=== PATIENT | female | born 1970 | race Caucasian/White ===

== ENCOUNTER 2017-12-08 14:30 | Outpatient (RCR) | payer OTHER, MEDICAID, SELFPAY ==
--- NOTE | 2017-10-30 15:46 | PT.OIE ---
Current Diagnoses Sacrococcygeal disorders, not elsewhere classified (10/30/17) Radiculopathy, lumbosacral region (10/30/17) Low back pain (10/30/17) Past Medical History (Last Updated 10/21/17 @ 08:55 by Taylor Colindres PA-C) Essential hypertension (Chronic 10/25/11) Osteoarthritis of lumbar spine (Chronic) Asthma, moderate persistent, poorly-controlled (Chronic 12/08/10) Morbid obesity (Chronic) Situational anxiety (Chronic 07/01/15) Asthma (Chronic Unknown) Depression (Chronic Unknown) Hypertension (Chronic Unknown) Carpal tunnel syndrome (Resolved Unknown) Past Surgical History History of carpal tunnel repair History of carpal tunnel repair Status post tubal ligation Provider Visit Care Team Role Provider Type Taylor Colindres PA-C Family Provider Advanced Practioner Clinician Primary Care Provider Specialty: Medical Address: [address] [place] [address], [id number] Email: [email or web address] Eitan Zimmerman MD Attending Provider Physician Specialty: Physical Medicine and Rehab Address: [address] [place] [address], [id number] Email: Physical Therapy Initial Evaluation PT-OP-A Visit Information Start: 10/23/17 07:25 Freq: Status: Active Protocol: Document 10/30/17 15:21 [facility] (Rec: 10/30/17 15:45 [facility] [id number]) Out-Patient Physical Therapy Visit Information Visit Information Visit Type Initial Evaluation Visit Start Time 14:32 Visit Stop Time 15:06 Total Visit Minutes 34 Visit Number 1 Number of FITTING ROOM INSPECTOR Visits 0 PT-OP-B Current Condition Start: 10/23/17 07:25 Freq: Status: Active Protocol: Document 10/30/17 15:21 [facility] (Rec: 10/30/17 15:45 [facility] [id number]) Current Condition History of Current Condition History of Current Condition Pt has hx of chronic LBP with history of trials of PT in past. First PT trial did help a little temporarily. Pt reports other PT did not make any difference. Pt reports she is having inc pain and in order to get MRI or further MD rx, she is being required to try PT. Pt reports she has a lot going on at home right now , creating increased stress. Future Testing and Treatments Planned MRI and further MD العلي if PT not successful Treatment Goals Patient/Caregiver Goals play at park with grandkids, lift grandkids, go for walks with grandkids w/o concern re: repercussions for back pain Personal Factors Other Personal Factors That May Effect Stress at home d/t issues w/ Therapy/Recovery son PT-OP-C Subjective Start: 10/23/17 07:25 Freq: Status: Active Protocol: Document 10/30/17 15:21 [facility] (Rec: 10/30/17 15:45 [facility] [email or web address]) Patient Questionnaires Oswestry Low Back Index Oswestry Score 24/50 Oswestry Impairment 40 to 59% Impaired (Score 40- 59) OP-PT Pain Assessment Location Right Leg Pain Location Details R LB into glute & down post thigh & into lat/post calf & foot Frequency Frequent Other Pain Aggravating Factors extended sit, extended stand, extended walk, difficulty falling asleep Other Pain Alleviating Factors massage, heat, laying down sometimes, stretch in hot shower PT-OP-G Mobility & Gait Start: 10/23/17 07:25 Freq: Status: Active Protocol: Document 10/30/17 15:21 [facility] (Rec: 10/30/17 15:45 [facility] [email or web address]) OP Gait Assessment Gait Deviations General Gait Pattern Antalgic Decreased Stride Length Flexed Trunk Lateral Trunk Lean PT-OP-J Posture/Palpation/Skin Start: 10/23/17 07:25 Freq: Status: Active Protocol: Document 10/30/17 15:21 [facility] (Rec: 10/30/17 15:45 [facility] [email or web address]) Posture Evaluation Angel Postural Classification System Angel Postural Classifications Anterior/Posterior Palpation Assessment Location One Palpation Location Tenderness in LB & glutes PT-OP-K Range of Motion Start: 10/23/17 07:25 Freq: Status: Active Protocol: Document 10/30/17 15:21 [facility] (Rec: 10/30/17 15:45 [facility] [email or web address]) Lumbar Spine Range of Motion Lumbar Spine Active Degrees Testing Position standing Flexion 65 Extension 30 Lateral Flexion Left 25 Lateral Flexion Right 18 ROM Limitations Pain Comments pain R side with R SB, pain with flex & ext PT-OP-L Special Tests Start: 10/23/17 07:25 Freq: Status: Active Protocol: Document 10/30/17 15:21 [facility] (Rec: 10/30/17 15:45 [facility] [email or web address]) Special Tests Lumbar Spine Special Tests Slump Test Results positive R; negative L PT-OP-M Strength Start: 10/23/17 07:25 Freq: Status: Active Protocol: Document 10/30/17 15:21 [facility] (Rec: 10/30/17 15:45 [facility] [email or web address]) Hip Strength Hip Manual Muscle Testing Right Flexion (L2) 5 Normal Abduction 3+ Fair+ External Rotation 3+ Fair+ Internal Rotation 4+ Good+ Left Flexion (L2) 5 Normal Abduction 4 Good External Rotation 4+ Good+ Internal Rotation 4+ Good+ Knee Strength Knee Manual Muscle Testing Right Flexion (S2) 4+ Good+ Extension (L3) 4+ Good+ Comments B ankle strength 5/5 Left Flexion (S2) 5 Normal Extension (L3) 5 Normal PT-OP-Q Treatments Start: 10/23/17 07:25 Freq: Status: Active Protocol: Document 10/30/17 15:21 [facility] (Rec: 10/30/17 15:45 [facility] [email or web address]) Therapeutic Activity Therapeutic Activity 2 Name sleep positions (supine & S/L & partial prone) 1 Name tennis ball on glutes & paraspinals PT-OP-T Assessment and Plan Start: 10/23/17 07:25 Freq: Status: Active Protocol: Document 10/30/17 15:21 [facility] (Rec: 10/30/17 15:45 [facility] [email or web address]) Physical Therapy Assessment Rehab Potential Rehabilitation Potential Fair Evaluation Complexity Number of Personal Factors/Comorbidities 3 or More Number of Body Systems Impaired 4 or More Clinical Presentation at Evaluation Evolving Impairments Impairments Activity Tolerance Functional Activities Gait Pain Posture ROM Soft Tissue Mobility Strength Goals Three Impairment gait Book Repairer Goal (LTG) Pt will amb with min deviations to prevent further aggrevation of LB & RLE. LTG Duration 12/30/17 Two Impairment strength Short Term Goal (STG) Indep w/HEP STG Duration 11/29/17 Mcc Goal (LTG) 5/5 strength to allow pt to play with grandkids with less restriction LTG Duration 12/30/17 One Impairment posture Short Term Goal (STG) Pt will demonstrate good lifting mechanics STG Duration 11/29/17 Book Repairer Goal (LTG) Pt will present with good posture without cueing. LTG Duration 12/30/17 Assessment Summary Assessment Pt presents with chronic LBP with radiculopathy into RLE. Pt would benefit from skilled PT to educate on proper positioning and posture for pain and strengthening to stabilize lumbosacral region. Physical Therapy Plan Frequency and Duration Frequency of Treatment 2x/Week Duration of Treatment 2 months Plan of Care Start Date 10/30/17 Plan of Care End Date 12/30/17 Therapeutic Interventions Therapeutic Interventions Aquatic Therapy Balance Training Gait Training Home Exercise Program Joint Mobilizations Manual Therapy Soft Tissue Mobilization Taping Therapeutic Exercises Modalities Electric Stimulation Hot Packs Ultrasound Next Visit Focus/Plan Next Note Type Treatment Note Next Visit Plan ICF stim w/MHP, LTR, piriformis stretch, pelvic tilt, cat/camel, felipa pose, STM to lumbar & glutes
--- NOTE | 2017-10-30 15:46 | PT.OPPOC ---
Current Diagnoses Sacrococcygeal disorders, not elsewhere classified (10/30/17) Radiculopathy, lumbosacral region (10/30/17) Low back pain (10/30/17) Provider Visit Care Team Role Provider Type Taylor Colindres PA-C Family Provider Advanced Practioner Clinician Primary Care Provider Specialty: Medical Address: [address] [place] [address], [phone] Email: [email or web address] Eitan Zimmerman MD Attending Provider Physician Specialty: Physical Medicine and Rehab Address: [address] [place] [address], [phone] Email: Plan Of Care PT-OP-T Assessment and Plan Start: 10/23/17 07:25 Freq: Status: Active Protocol: Document 10/30/17 15:21 [facility] (Rec: 10/30/17 15:45 [facility] [email or web address]) Physical Therapy Assessment Rehab Potential Rehabilitation Potential Fair Evaluation Complexity Number of Personal Factors/Comorbidities 3 or More Number of Body Systems Impaired 4 or More Clinical Presentation at Evaluation Evolving Impairments Impairments Activity Tolerance Functional Activities Gait Pain Posture ROM Soft Tissue Mobility Strength Goals Three Impairment gait Offset Plate Preparation Supervisor Goal (LTG) Pt will amb with min deviations to prevent further aggrevation of LB & RLE. LTG Duration 12/30/17 Two Impairment strength Short Term Goal (STG) Indep w/HEP STG Duration 11/29/17 Offset Plate Preparation Supervisor Goal (LTG) 5/5 strength to allow pt to play with grandkids with less restriction LTG Duration 12/30/17 One Impairment posture Short Term Goal (STG) Pt will demonstrate good lifting mechanics STG Duration 11/29/17 Mcc Goal (LTG) Pt will present with good posture without cueing. LTG Duration 12/30/17 Assessment Summary Assessment Pt presents with chronic LBP with radiculopathy into RLE. Pt would benefit from skilled PT to educate on proper positioning and posture for pain and strengthening to stabilize lumbosacral region. Physical Therapy Plan Frequency and Duration Frequency of Treatment 2x/Week Duration of Treatment 2 months Plan of Care Start Date 10/30/17 Plan of Care End Date 12/30/17 Therapeutic Interventions Therapeutic Interventions Aquatic Therapy Balance Training Gait Training Home Exercise Program Joint Mobilizations Manual Therapy Soft Tissue Mobilization Taping Therapeutic Exercises Modalities Electric Stimulation Hot Packs Ultrasound Next Visit Focus/Plan Next Note Type Treatment Note Next Visit Plan ICF stim w/MHP, LTR, piriformis stretch, pelvic tilt, cat/camel, felipa pose, STM to lumbar & glutes Plan of Care Dates Plan of Care Start Date 10/30/17 Plan of Care End Date 12/30/17
--- NOTE | 2017-11-21 16:46 | PT.OTN ---
Current Diagnoses Sacrococcygeal disorders, not elsewhere classified (11/21/17) Radiculopathy, lumbosacral region (11/21/17) Low back pain (11/21/17) Physical Therapy Treatment Note PT-OP-A Visit Information Start: 10/23/17 07:25 Freq: Status: Active Protocol: Document 11/21/17 16:39 [facility] (Rec: 11/21/17 16:46 [facility] [email or web address]) Out-Patient Physical Therapy Visit Information Visit Information Visit Type Treatment Note Visit Note 24 total vists allowed Visit Start Time 15:15 Visit Stop Time 16:15 Total Visit Minutes 60 Visit Number 2 Number of CONTROL ROOM SUPERVISOR Visits 0 PT-OP-B Current Condition Start: 10/23/17 07:25 Freq: Status: Active Protocol: Document 10/30/17 15:21 [facility] (Rec: 10/30/17 15:45 [facility] [email or web address]) Current Condition History of Current Condition History of Current Condition Pt has hx of chronic LBP with history of trials of PT in past. First PT trial did help a little temporarily. Pt reports other PT did not make any difference. Pt reports she is having inc pain and in order to get MRI or further MD rx, she is being required to try PT. Pt reports she has a lot going on at home right now , creating increased stress. Future Testing and Treatments Planned MRI and further MD eval if PT not successful Treatment Goals Patient/Caregiver Goals play at park with grandkids, lift grandkids, go for walks with grandkids w/o concern re: repercussions for back pain Personal Factors Other Personal Factors That May Effect Stress at home d/t issues w/ Therapy/Recovery son PT-OP-C Subjective Start: 10/23/17 07:25 Freq: Status: Active Protocol: Document 11/21/17 16:39 [facility] (Rec: 11/21/17 16:46 [facility] [email or web address]) OP-PT Subjective Patient Comments Patient Comments Pt reports she was sick which is why she missed prior appts. Reports she has tried sleeping positions and they have helped some. PT-OP-G Mobility & Gait Start: 10/23/17 07:25 Freq: Status: Active Protocol: Document 10/30/17 15:21 [facility] (Rec: 10/30/17 15:45 [facility] [email or web address]) OP Gait Assessment Gait Deviations General Gait Pattern Antalgic Decreased Stride Length Flexed Trunk Lateral Trunk Lean PT-OP-J Posture/Palpation/Skin Start: 10/23/17 07:25 Freq: Status: Active Protocol: Document 10/30/17 15:21 [facility] (Rec: 10/30/17 15:45 [facility] [email or web address]) Posture Evaluation [facility] Postural Classification System Angel Postural Classifications Anterior/Posterior Palpation Assessment Location One Palpation Location Tenderness in LB & glutes PT-OP-K Range of Motion Start: 10/23/17 07:25 Freq: Status: Active Protocol: Document 10/30/17 15:21 [facility] (Rec: 10/30/17 15:45 [facility] [email or web address]) Lumbar Spine Range of Motion Lumbar Spine Active Degrees Testing Position standing Flexion 65 Extension 30 Lateral Flexion Left 25 Lateral Flexion Right 18 ROM Limitations Pain Comments pain R side with R SB, pain with flex & ext PT-OP-L Special Tests Start: 10/23/17 07:25 Freq: Status: Active Protocol: Document 10/30/17 15:21 [facility] (Rec: 10/30/17 15:45 [facility] [id number]) Special Tests Lumbar Spine Special Tests Slump Test Results positive R; negative L PT-OP-M Strength Start: 10/23/17 07:25 Freq: Status: Active Protocol: Document 10/30/17 15:21 [facility] (Rec: 10/30/17 15:45 [facility] [email or web address]) Hip Strength Hip Manual Muscle Testing Right Flexion (L2) 5 Normal Abduction 3+ Fair+ External Rotation 3+ Fair+ Internal Rotation 4+ Good+ Left Flexion (L2) 5 Normal Abduction 4 Good External Rotation 4+ Good+ Internal Rotation 4+ Good+ Knee Strength Knee Manual Muscle Testing Right Flexion (S2) 4+ Good+ Extension (L3) 4+ Good+ Comments B ankle strength 5/5 Left Flexion (S2) 5 Normal Extension (L3) 5 Normal PT-OP-Q Treatments Start: 10/23/17 07:25 Freq: Status: Active Protocol: Document 11/21/17 16:39 [facility] (Rec: 11/21/17 16:46 [facility] [email or web address]) Therapeutic Exercises Supine Exercises 5 Supine Exercise Name pelvic tilt with heel slide Reps/Minutes 5 Comments small range 3 Supine Exercise Name Feldenkris hip rotation 3 positions 2 Supine Exercise Name LTR Reps/Minutes 10 1 Supine Exercise Name pelvic tilt Reps/Minutes 10 Manual Therapy Treatment Soft Tissue Mobilization 1 Body Location QL Mobilization Type Rolling Body Position Sidelying Self-Care/Home Management Treatment Education Other Education edu on importance of exercise & movement & importance to stay in pain free range. PT-OP-R Modalities Start: 10/23/17 07:25 Freq: Status: Active Protocol: Document 11/21/17 16:39 [facility] (Rec: 11/21/17 16:46 [facility] [email or web address]) Electric Stimulation Electric Stimulation Interferential Current (IFC) Body Location lumbar Duration (Minutes) 15 Patient Position Hooklying Combined With Heat/Cold Hot Pack PT-OP-T Assessment and Plan Start: 10/23/17 07:25 Freq: Status: Active Protocol: Document 11/21/17 16:39 [facility] (Rec: 11/21/17 16:46 [facility] [email or web address]) Physical Therapy Assessment Goals Three Impairment gait Assisted Goal (LTG) Pt will amb with min deviations to prevent further aggrevation of LB & RLE. LTG Duration 12/30/17 Two Impairment strength Short Term Goal (STG) Indep w/HEP STG Duration 11/29/17 Assisted Goal (LTG) 5/5 strength to allow pt to play with grandkids with less restriction LTG Duration 12/30/17 One Impairment posture Short Term Goal (STG) Pt will demonstrate good lifting mechanics STG Duration 11/29/17 Assisted Goal (LTG) Pt will present with good posture without cueing. LTG Duration 12/30/17 Assessment Summary Assessment Pt able to tolerate all new exercises with report of very minor inc pain. Encouraged to stay in painfree range with all exercises.Pt reports improvement with Stim/MHP Physical Therapy Plan Frequency and Duration Frequency of Treatment 2x/Week Duration of Treatment 2 months Plan of Care Start Date 10/30/17 Plan of Care End Date 12/30/17 Next Visit Focus/Plan Next Note Type Treatment Note Next Visit Plan mechanical traction, cat/camel , felipa pose, piriformis stretch, advance core stability as tolerated
--- NOTE | 2017-11-24 16:43 | PT.OTN ---
Current Diagnoses Sacrococcygeal disorders, not elsewhere classified (11/24/17) Radiculopathy, lumbosacral region (11/24/17) Low back pain (11/24/17) Physical Therapy Treatment Note PT-OP-A Visit Information Start: 10/23/17 07:25 Freq: Status: Active Protocol: Document 11/24/17 15:13 [facility] (Rec: 11/24/17 16:43 [facility] [id number]) Out-Patient Physical Therapy Visit Information Visit Information Visit Type Treatment Note Visit Start Time 14:30 Visit Stop Time 15:30 Total Visit Minutes 60 Visit Number 3 Number of [employer] FLATBED DRIVER Visits 0 PT-OP-B Current Condition Start: 10/23/17 07:25 Freq: Status: Active Protocol: Document 10/30/17 15:21 [facility] (Rec: 10/30/17 15:45 [facility] [email or web address]) Current Condition History of Current Condition History of Current Condition Pt has hx of chronic LBP with history of trials of PT in past. First PT trial did help a little temporarily. Pt reports other PT did not make any difference. Pt reports she is having inc pain and in order to get MRI or further MD rx, she is being required to try PT. Pt reports she has a lot going on at home right now , creating increased stress. Future Testing and Treatments Planned MRI and further MD eval if PT not successful Treatment Goals Patient/Caregiver Goals play at park with grandkids, lift grandkids, go for walks with grandkids w/o concern re: repercussions for back pain Personal Factors Other Personal Factors That May Effect Stress at home d/t issues w/ Therapy/Recovery son PT-OP-C Subjective Start: 10/23/17 07:25 Freq: Status: Active Protocol: Document 11/24/17 15:13 [facility] (Rec: 11/24/17 16:43 [facility] [id number]) OP-PT Subjective Patient Comments Patient Comments Pt reports feeling good after last session. PT-OP-G Mobility & Gait Start: 10/23/17 07:25 Freq: Status: Active Protocol: Document 10/30/17 15:21 [facility] (Rec: 10/30/17 15:45 [facility] [email or web address]) OP Gait Assessment Gait Deviations General Gait Pattern Antalgic Decreased Stride Length Flexed Trunk Lateral Trunk Lean PT-OP-J Posture/Palpation/Skin Start: 10/23/17 07:25 Freq: Status: Active Protocol: Document 10/30/17 15:21 [facility] (Rec: 10/30/17 15:45 [facility] [email or web address]) Posture Evaluation [facility] Postural Classification System Angel Postural Classifications Anterior/Posterior Palpation Assessment Location One Palpation Location Tenderness in LB & glutes PT-OP-K Range of Motion Start: 10/23/17 07:25 Freq: Status: Active Protocol: Document 10/30/17 15:21 [facility] (Rec: 10/30/17 15:45 [facility] [email or web address]) Lumbar Spine Range of Motion Lumbar Spine Active Degrees Testing Position standing Flexion 65 Extension 30 Lateral Flexion Left 25 Lateral Flexion Right 18 ROM Limitations Pain Comments pain R side with R SB, pain with flex & ext PT-OP-L Special Tests Start: 10/23/17 07:25 Freq: Status: Active Protocol: Document 10/30/17 15:21 [facility] (Rec: 10/30/17 15:45 [facility] [email or web address]) Special Tests Lumbar Spine Special Tests Slump Test Results positive R; negative L PT-OP-M Strength Start: 10/23/17 07:25 Freq: Status: Active Protocol: Document 10/30/17 15:21 [facility] (Rec: 10/30/17 15:45 [facility] [id number]) Hip Strength Hip Manual Muscle Testing Right Flexion (L2) 5 Normal Abduction 3+ Fair+ External Rotation 3+ Fair+ Internal Rotation 4+ Good+ Left Flexion (L2) 5 Normal Abduction 4 Good External Rotation 4+ Good+ Internal Rotation 4+ Good+ Knee Strength Knee Manual Muscle Testing Right Flexion (S2) 4+ Good+ Extension (L3) 4+ Good+ Comments B ankle strength 5/5 Left Flexion (S2) 5 Normal Extension (L3) 5 Normal PT-OP-Q Treatments Start: 10/23/17 07:25 Freq: Status: Active Protocol: Document 11/24/17 15:13 [facility] (Rec: 11/24/17 16:43 [facility] [id number]) Therapeutic Exercises Supine Exercises 4 Supine Exercise Name bridge Reps/Minutes 10 Comments starting with manual facilitation 2 Supine Exercise Name LTR Reps/Minutes 5 Sidelying Exercises 1 Sidelying Exercise Name abd Side bilateral Reps/Minutes 2x10 Manual Therapy Treatment Soft Tissue Mobilization 1 Body Location QL & ES Mobilization Type Rolling Body Position Sidelying PT-OP-R Modalities Start: 10/23/17 07:25 Freq: Status: Active Protocol: Document 11/24/17 15:13 [facility] (Rec: 11/24/17 16:43 [facility] [id number]) Electric Stimulation Electric Stimulation Interferential Current (IFC) Body Location lumbar Duration (Minutes) 15 Patient Position Hooklying Combined With Heat/Cold Hot Pack Spinal Traction Traction Treatment Lumbar Method Mechanical Patient Position Hooklying Force Applied (Pounds) 42 Duration of Treatment (Minutes) 10 Heating Pad Applied No PT-OP-T Assessment and Plan Start: 10/23/17 07:25 Freq: Status: Active Protocol: Document 11/24/17 15:13 [facility] (Rec: 11/24/17 16:43 [facility] [id number]) Physical Therapy Assessment Goals Three Impairment gait Nail Welter Goal (LTG) Pt will amb with min deviations to prevent further aggrevation of LB & RLE. LTG Duration 12/30/17 Two Impairment strength Short Term Goal (STG) Indep w/HEP STG Duration 11/29/17 Group Home Goal (LTG) 5/5 strength to allow pt to play with grandkids with less restriction LTG Duration 12/30/17 One Impairment posture Short Term Goal (STG) Pt will demonstrate good lifting mechanics STG Duration 11/29/17 Group Home Goal (LTG) Pt will present with good posture without cueing. LTG Duration 12/30/17 Assessment Summary Assessment Pt did well with all new exercises and was able to tolerate inc pressure with STM today. Physical Therapy Plan Next Visit Focus/Plan Next Note Type Treatment Note Next Visit Plan cat/camel, felipa pose, piriformis stretch, cont advancing core stability & assess how pt tolerated manual traction
--- NOTE | 2017-12-04 09:51 | PT.OTN ---
Current Diagnoses Sacrococcygeal disorders, not elsewhere classified (12/04/17) Radiculopathy, lumbosacral region (12/04/17) Low back pain (12/04/17) Physical Therapy Treatment Note PT-OP-A Visit Information Start: 10/23/17 07:25 Freq: Status: Active Protocol: Document 12/04/17 09:05 [facility] (Rec: 12/04/17 09:43 [facility] [id number]) Out-Patient Physical Therapy Visit Information Visit Information Visit Type Treatment Note Visit Note 10 min late Visit Start Time 09:10 Visit Stop Time 10:00 Total Visit Minutes 50 Visit Number 4 Number of CLASSIFIER OPERATOR Visits 0 PT-OP-B Current Condition Start: 10/23/17 07:25 Freq: Status: Active Protocol: Document 10/30/17 15:21 [facility] (Rec: 10/30/17 15:45 [facility] [id number]) Current Condition History of Current Condition History of Current Condition Pt has hx of chronic LBP with history of trials of PT in past. First PT trial did help a little temporarily. Pt reports other PT did not make any difference. Pt reports she is having inc pain and in order to get MRI or further MD rx, she is being required to try PT. Pt reports she has a lot going on at home right now , creating increased stress. Future Testing and Treatments Planned MRI and further MD eval if PT not successful Treatment Goals Patient/Caregiver Goals play at park with grandkids, lift grandkids, go for walks with grandkids w/o concern re: repercussions for back pain Personal Factors Other Personal Factors That May Effect Stress at home d/t issues w/ Therapy/Recovery son PT-OP-C Subjective Start: 10/23/17 07:25 Freq: Status: Active Protocol: Document 12/04/17 09:05 [facility] (Rec: 12/04/17 09:43 [facility] [id number]) OP-PT Subjective Patient Comments Patient Comments Compliance with HEP. [place] good with traction PT-OP-G Mobility & Gait Start: 10/23/17 07:25 Freq: Status: Active Protocol: Document 10/30/17 15:21 [facility] (Rec: 10/30/17 15:45 [facility] [id number]) OP Gait Assessment Gait Deviations General Gait Pattern Antalgic Decreased Stride Length Flexed Trunk Lateral Trunk Lean PT-OP-J Posture/Palpation/Skin Start: 10/23/17 07:25 Freq: Status: Active Protocol: Document 10/30/17 15:21 [facility] (Rec: 10/30/17 15:45 [facility] [id number]) Posture Evaluation [facility] Postural Classification System Angel Postural Classifications Anterior/Posterior Palpation Assessment Location One Palpation Location Tenderness in LB & glutes PT-OP-K Range of Motion Start: 10/23/17 07:25 Freq: Status: Active Protocol: Document 10/30/17 15:21 [facility] (Rec: 10/30/17 15:45 [facility] [id number]) Lumbar Spine Range of Motion Lumbar Spine Active Degrees Testing Position standing Flexion 65 Extension 30 Lateral Flexion Left 25 Lateral Flexion Right 18 ROM Limitations Pain Comments pain R side with R SB, pain with flex & ext PT-OP-L Special Tests Start: 10/23/17 07:25 Freq: Status: Active Protocol: Document 10/30/17 15:21 [facility] (Rec: 10/30/17 15:45 [facility] [id number]) Special Tests Lumbar Spine Special Tests Slump Test Results positive R; negative L PT-OP-M Strength Start: 10/23/17 07:25 Freq: Status: Active Protocol: Document 10/30/17 15:21 [facility] (Rec: 10/30/17 15:45 [facility] [id number]) Hip Strength Hip Manual Muscle Testing Right Flexion (L2) 5 Normal Abduction 3+ Fair+ External Rotation 3+ Fair+ Internal Rotation 4+ Good+ Left Flexion (L2) 5 Normal Abduction 4 Good External Rotation 4+ Good+ Internal Rotation 4+ Good+ Knee Strength Knee Manual Muscle Testing Right Flexion (S2) 4+ Good+ Extension (L3) 4+ Good+ Comments B ankle strength 5/5 Left Flexion (S2) 5 Normal Extension (L3) 5 Normal PT-OP-Q Treatments Start: 10/23/17 07:25 Freq: Status: Active Protocol: Document 12/04/17 09:05 [facility] (Rec: 12/04/17 09:43 [facility] [id number]) Therapeutic Exercises Supine Exercises 4 Supine Exercise Name bridge Reps/Minutes 5 5 Supine Exercise Name pelvic tilt with heel slide Reps/Minutes 5 3 Supine Exercise Name Feldenkris hip rotation 3 positions Reps/Minutes 5 2 Supine Exercise Name LTR Reps/Minutes 5 1 Supine Exercise Name pelvic tilt Reps/Minutes 5 Sidelying Exercises 1 Sidelying Exercise Name abd Side bilateral Reps/Minutes 10 Manual Therapy Treatment Soft Tissue Mobilization 1 Body Location QL & ES Mobilization Type Rolling Body Position Prone Joint Mobilizations 1 Joint sacrum Direction R UPA & caudal FM PT-OP-R Modalities Start: 10/23/17 07:25 Freq: Status: Active Protocol: Document 12/04/17 09:05 [facility] (Rec: 12/04/17 09:43 [facility] [id number]) Electric Stimulation Electric Stimulation Interferential Current (IFC) Body Location lumbar Duration (Minutes) 15 Patient Position Hooklying Combined With Heat/Cold Hot Pack Spinal Traction Traction Treatment Lumbar Method Mechanical Patient Position Hooklying Force Applied (Pounds) 47 Duration of Treatment (Minutes) 10 Heating Pad Applied No PT-OP-T Assessment and Plan Start: 10/23/17 07:25 Freq: Status: Active Protocol: Document 12/04/17 09:05 [facility] (Rec: 12/04/17 09:43 [facility] [id number]) Physical Therapy Assessment Goals Three Impairment gait Retirement Goal (LTG) Pt will amb with min deviations to prevent further aggrevation of LB & RLE. LTG Duration 12/30/17 Two Impairment strength Short Term Goal (STG) Indep w/HEP STG Duration 11/29/17 Aircraft Designer Goal (LTG) 5/5 strength to allow pt to play with grandkids with less restriction LTG Duration 12/30/17 One Impairment posture Short Term Goal (STG) Pt will demonstrate good lifting mechanics STG Duration 11/29/17 Retirement Goal (LTG) Pt will present with good posture without cueing. LTG Duration 12/30/17 Assessment Summary Assessment Pt had improved ability to maintain core stability during exercises. She required min cueing to maintain neutral. Physical Therapy Plan Frequency and Duration Frequency of Treatment 2x/Week Duration of Treatment 2 months Plan of Care Start Date 10/30/17 Plan of Care End Date 12/30/17 Next Visit Focus/Plan Next Note Type Treatment Note Next Visit Plan cat/camel, felipa pose, piriformis stretch, cont advancing core stability & assess how pt tolerated manual traction
--- NOTE | 2017-12-08 15:29 | PT.OTN ---
Current Diagnoses Sacrococcygeal disorders, not elsewhere classified (12/08/17) Radiculopathy, lumbosacral region (12/08/17) Low back pain (12/08/17) Physical Therapy Treatment Note PT-OP-A Visit Information Start: 10/23/17 07:25 Freq: Status: Active Protocol: Document 12/08/17 14:36 [facility] (Rec: 12/08/17 15:29 [facility] [id number]) Out-Patient Physical Therapy Visit Information Visit Information Visit Type Treatment Note Visit Start Time 14:35 Visit Stop Time 15:30 Total Visit Minutes 55 Visit Number 5 Number of ENGINE PILOT Visits 0 PT-OP-B Current Condition Start: 10/23/17 07:25 Freq: Status: Active Protocol: Document 10/30/17 15:21 [facility] (Rec: 10/30/17 15:45 [facility] [id number]) Current Condition History of Current Condition History of Current Condition Pt has hx of chronic LBP with history of trials of PT in past. First PT trial did help a little temporarily. Pt reports other PT did not make any difference. Pt reports she is having inc pain and in order to get MRI or further MD rx, she is being required to try PT. Pt reports she has a lot going on at home right now , creating increased stress. Future Testing and Treatments Planned MRI and further MD eval if PT not successful Treatment Goals Patient/Caregiver Goals play at park with grandkids, lift grandkids, go for walks with grandkids w/o concern re: repercussions for back pain Personal Factors Other Personal Factors That May Effect Stress at home d/t issues w/ Therapy/Recovery son PT-OP-C Subjective Start: 10/23/17 07:25 Freq: Status: Active Protocol: Document 12/08/17 14:36 [facility] (Rec: 12/08/17 15:29 [facility] [id number]) OP-PT Subjective Patient Comments Patient Comments Compliance w/HEP PT-OP-G Mobility & Gait Start: 10/23/17 07:25 Freq: Status: Active Protocol: Document 10/30/17 15:21 [facility] (Rec: 10/30/17 15:45 [facility] [id number]) OP Gait Assessment Gait Deviations General Gait Pattern Antalgic Decreased Stride Length Flexed Trunk Lateral Trunk Lean PT-OP-J Posture/Palpation/Skin Start: 10/23/17 07:25 Freq: Status: Active Protocol: Document 10/30/17 15:21 [facility] (Rec: 10/30/17 15:45 [facility] [id number]) Posture Evaluation [facility] Postural Classification System Angel Postural Classifications Anterior/Posterior Palpation Assessment Location One Palpation Location Tenderness in LB & glutes PT-OP-K Range of Motion Start: 10/23/17 07:25 Freq: Status: Active Protocol: Document 10/30/17 15:21 [facility] (Rec: 10/30/17 15:45 [facility] [id number]) Lumbar Spine Range of Motion Lumbar Spine Active Degrees Testing Position standing Flexion 65 Extension 30 Lateral Flexion Left 25 Lateral Flexion Right 18 ROM Limitations Pain Comments pain R side with R SB, pain with flex & ext PT-OP-L Special Tests Start: 10/23/17 07:25 Freq: Status: Active Protocol: Document 10/30/17 15:21 [facility] (Rec: 10/30/17 15:45 [facility] [id number]) Special Tests Lumbar Spine Special Tests Slump Test Results positive R; negative L PT-OP-M Strength Start: 10/23/17 07:25 Freq: Status: Active Protocol: Document 10/30/17 15:21 [facility] (Rec: 10/30/17 15:45 [facility] [id number]) Hip Strength Hip Manual Muscle Testing Right Flexion (L2) 5 Normal Abduction 3+ Fair+ External Rotation 3+ Fair+ Internal Rotation 4+ Good+ Left Flexion (L2) 5 Normal Abduction 4 Good External Rotation 4+ Good+ Internal Rotation 4+ Good+ Knee Strength Knee Manual Muscle Testing Right Flexion (S2) 4+ Good+ Extension (L3) 4+ Good+ Comments B ankle strength 5/5 Left Flexion (S2) 5 Normal Extension (L3) 5 Normal PT-OP-Q Treatments Start: 10/23/17 07:25 Freq: Status: Active Protocol: Document 12/08/17 14:36 [facility] (Rec: 12/08/17 15:29 [facility] [id number]) Therapeutic Exercises Supine Exercises 6 Supine Exercise Name piriformis stretch Reps/Minutes 2x30 4 Supine Exercise Name bridge Reps/Minutes 10 Comments arms overhead 5 Supine Exercise Name pelvic tilt w/SLR Reps/Minutes 10 1 Supine Exercise Name tilt with scissors Reps/Minutes 2x5 Manual Therapy Treatment Soft Tissue Mobilization 1 Body Location QL & ES Mobilization Type Rolling Body Position Prone Joint Mobilizations 2 Joint hip Direction on axis ER R 1 Joint sacrum Direction R UPA & caudal FM PT-OP-R Modalities Start: 10/23/17 07:25 Freq: Status: Active Protocol: Document 12/08/17 14:36 [facility] (Rec: 12/08/17 15:29 [facility] [id number]) Electric Stimulation Electric Stimulation Interferential Current (IFC) Body Location lumbar Duration (Minutes) 15 Patient Position Hooklying Combined With Heat/Cold Hot Pack Spinal Traction Traction Treatment Lumbar Method Mechanical Patient Position Hooklying Force Applied (Pounds) 60 Duration of Treatment (Minutes) 10 Heating Pad Applied No PT-OP-T Assessment and Plan Start: 10/23/17 07:25 Freq: Status: Active Protocol: Document 12/08/17 14:36 [facility] (Rec: 12/08/17 15:29 [facility] [id number]) Physical Therapy Assessment Goals Three Impairment gait Shelter Goal (LTG) Pt will amb with min deviations to prevent further aggrevation of LB & RLE. LTG Duration 12/30/17 Two Impairment strength Short Term Goal (STG) Indep w/HEP STG Duration 11/29/17 Shelter Goal (LTG) 5/5 strength to allow pt to play with grandkids with less restriction LTG Duration 12/30/17 One Impairment posture Short Term Goal (STG) Pt will demonstrate good lifting mechanics STG Duration 11/29/17 Shelter Goal (LTG) Pt will present with good posture without cueing. LTG Duration 12/30/17 Assessment Summary Assessment Pt is able to tolerate advancement in HEP exercises. She is progressing with overall stability Physical Therapy Plan Frequency and Duration Frequency of Treatment 2x/Week Duration of Treatment 2 months Plan of Care Start Date 10/30/17 Plan of Care End Date 12/30/17 Next Visit Focus/Plan Next Note Type Treatment Note Next Visit Plan cat/camel, felipa pose & advance core
--- NOTE | 2018-02-13 16:52 | PT.OPPN ---
Current Diagnoses Sacrococcygeal disorders, not elsewhere classified (12/08/17) Radiculopathy, lumbosacral region (12/08/17) Low back pain (12/08/17) Physical Therapy Progress Note To Sarah Wilkins has attended 5 visits between 10/30/17 and 12/08/17 with manual skills used, modalities, and exercises that were instructed for HEP. Pt has improved with flexibility and mobility, but reports no change in pain. In recent phone conversation with patient, she reports she has done her HEP consistently since last mobility, but still has a high level of daily pain. Pt requested progress note be sent to MD. She has not been seen recently, so no strength or ROM has been tested since evaluation. Thank you, Twyla Villa PT, DPT, CSCS, CIMI
--- NOTE | 2018-05-01 16:52 | PT.OPDS ---
Current Diagnoses Sacrococcygeal disorders, not elsewhere classified (12/08/17) Radiculopathy, lumbosacral region (12/08/17) Low back pain (12/08/17) Provider Visit Care Team Role Provider Type Taylor Colindres PA-C Family Provider Advanced [employer] Furnace Tender Primary Care Provider Specialty: Medical Address: [address] [place] [address], [id number] Email: [email or web address] Eitan Zimmerman MD Attending Provider Physician Specialty: Physical Medicine and Rehab Address: [address] [place] [address], [id number] Email: Visit Number Visit Number 5 Discharge Summary PT-OP-B Current Condition Start: 10/23/17 07:25 Freq: Status: Active Protocol: Document 10/30/17 15:21 [facility] (Rec: 10/30/17 15:45 [facility] [id number]) Current Condition History of Current Condition History of Current Condition Pt has hx of chronic LBP with history of trials of PT in past. First PT trial did help a little temporarily. Pt reports other PT did not make any difference. Pt reports she is having inc pain and in order to get MRI or further MD rx, she is being required to try PT. Pt reports she has a lot going on at home right now , creating increased stress. Future Testing and Treatments Planned MRI and further MD eval if PT not successful Treatment Goals Patient/Caregiver Goals play at park with grandkids, lift grandkids, go for walks with grandkids w/o concern re: repercussions for back pain Personal Factors Other Personal Factors That May Effect Stress at home d/t issues w/ Therapy/Recovery son PT-OP-C Subjective Start: 10/23/17 07:25 Freq: Status: Active Protocol: Document 12/08/17 14:36 [facility] (Rec: 12/08/17 15:29 [facility] [id number]) OP-PT Subjective Patient Comments Patient Comments Compliance w/HEP PT-OP-G Mobility & Gait Start: 10/23/17 07:25 Freq: Status: Active Protocol: Document 10/30/17 15:21 [facility] (Rec: 10/30/17 15:45 [facility] [id number]) OP Gait Assessment Gait Deviations General Gait Pattern Antalgic Decreased Stride Length Flexed Trunk Lateral Trunk Lean PT-OP-J Posture/Palpation/Skin Start: 10/23/17 07:25 Freq: Status: Active Protocol: Document 10/30/17 15:21 [facility] (Rec: 10/30/17 15:45 [facility] [id number]) Posture Evaluation [facility] Postural Classification System Angel Postural Classifications Anterior/Posterior Palpation Assessment Location One Palpation Location Tenderness in LB & glutes PT-OP-K Range of Motion Start: 10/23/17 07:25 Freq: Status: Active Protocol: Document 10/30/17 15:21 [facility] (Rec: 10/30/17 15:45 [facility] [id number]) Lumbar Spine Range of Motion Lumbar Spine Active Degrees Testing Position standing Flexion 65 Extension 30 Lateral Flexion Left 25 Lateral Flexion Right 18 ROM Limitations Pain Comments pain R side with R SB, pain with flex & ext PT-OP-L Special Tests Start: 10/23/17 07:25 Freq: Status: Active Protocol: Document 10/30/17 15:21 [facility] (Rec: 10/30/17 15:45 [facility] [id number]) Special Tests Lumbar Spine Special Tests Slump Test Results positive R; negative L PT-OP-M Strength Start: 10/23/17 07:25 Freq: Status: Active Protocol: Document 10/30/17 15:21 [facility] (Rec: 10/30/17 15:45 [facility] [id number]) Hip Strength Hip Manual Muscle Testing Right Flexion (L2) 5 Normal Abduction 3+ Fair+ External Rotation 3+ Fair+ Internal Rotation 4+ Good+ Left Flexion (L2) 5 Normal Abduction 4 Good External Rotation 4+ Good+ Internal Rotation 4+ Good+ Knee Strength Knee Manual Muscle Testing Right Flexion (S2) 4+ Good+ Extension (L3) 4+ Good+ Comments B ankle strength 5/5 Left Flexion (S2) 5 Normal Extension (L3) 5 Normal PT-OP-T Assessment and Plan Start: 10/23/17 07:25 Freq: Status: Active Protocol: Document 05/01/18 16:47 [facility] (Rec: 05/01/18 16:52 [facility] [id number]) Physical Therapy Plan Discharge Physical Therapy Discharge Reasons Patient Request Discharge Comments Pt wanted to wait to follow up with MD before further PT
== END 2018-05-03 11:45 ==
LOC: PHYS 14:30
PROVIDERS: Family Provider Physician Assistant; PCP Physician Assistant; Visit Provider Physical Medicine & Rehabilitation Pain Medicine
DX: M54.5 Low back pain (principal); M54.17 Radiculopathy, lumbosacral region; M53.3 Sacrococcygeal disorders, not elsewhere classified
CPT/HCPCS: 97012; 97014; 97110; 97140; 97162; 97530; 97535; G0283

== ENCOUNTER → 2018-01-03 12:15 | Outpatient (CLI) | payer OTHER, MEDICAID, SELFPAY ==
[2018-01-03 13:20] LABS: Alanine Aminotransferase 28 IU/L (9-52); Albumin 4.3 g/dL (3.5-5.0); Albumin Globulin Ratio 1.4 (1.0-2.8); Alkaline Phosphatase 70 U/L (38-126); Aspartate Aminotransferase 21 IU/L (14-36); BUN Creatinine Ratio 21.4 (6-22); Bilirubin Total 0.4 mg/dL (0.2-1.3); Blood Urea Nitrogen 15 mg/dL (7-17); Calcium 9.8 mg/dL (8.4-10.2); Carbon Dioxide 30 mmol/L (22-32); Chloride 100 mmol/L (98-107); Cholesterol 213 mg/dL (140-199); Estimated Glomerular Filt Rate > 60.0 mL/min (>60); Globulin 3.1 g/dL (1.7-4.1); Glucose 113 mg/dL (70-100); HDL Cholesterol 40 mg/dL (40-60); HEMOLYSIS < 15 (0-50); LDL Cholesterol Calculated 135 mg/dL (<100); Sodium 140 mmol/L (137-145); Total Protein 7.4 g/dL (6.3-8.2); Triglycerides 188 mg/dL (35-150)
[2018-01-03 15:41] LABS: Creatinine Urine Random 168.8 mg/dL
[2018-01-03 15:46] LABS: Microalbumi Creatinin Ratio Ur 6.5 ug/mg CR (<30); Microalbumin Urine Random 1.1 mg/dL (0-1.6)
== END ==
PROVIDERS: Family Provider Physician Assistant; PCP Physician Assistant; Visit Provider Physician Assistant
DX: I10 Essential (primary) hypertension (principal); E78.5 Hyperlipidemia, unspecified
CPT/HCPCS: 36415; 80053; 80061; 82043; 82570

== ENCOUNTER → 2018-01-25 18:04 | Outpatient (CLI) | payer OTHER, MEDICAID, SELFPAY | PROVIDERS: Family Provider Physician Assistant; PCP Physician Assistant; Visit Provider Physician Assistant | DX: N39.0 Urinary tract infection, site not specified (principal) | CPT/HCPCS: 87077; 87086; 87186 ==

== ENCOUNTER → 2018-02-10 10:45 | Outpatient (CLI) | payer OTHER, MEDICAID, SELFPAY ==
--- NOTE | 2018-02-10 10:46 | DI.MG.S_ITS ---
BILATERAL DIGITAL SCREENING MAMMOGRAM 3D/2D WITH CAD: 02/10/2018 CLINICAL: Baseline exam. Routine screening. Family history of breast cancer. No prior exams were available for comparison. The tissue of both breasts is predominantly fatty. Current study was also evaluated with a Computer Aided Detection (CAD) system. No significant masses, calcifications, or other findings are seen in either breast. IMPRESSION: NEGATIVE There is no mammographic evidence of malignancy. A 1 year screening mammogram is recommended.(02/11/2019) This exam was interpreted at Station ID: [id number]. NOTE: For mammograms, a report in lay terms will be sent to the patient. Approximately 15% of breast malignancies will not be visualized mammographically. In the management of a palpable breast mass, a negative mammogram must not discourage biopsy of a clinically suspicious lesion. Electronically Signed By: Adele abel/paige:02/12/2018 12:23:59 letter sent: Normal Exam ACR BI-RADS Category 1: Negative [id number]
== END ==
PROVIDERS: PCP Physician Assistant; Visit Provider Physician Assistant
DX: Z12.31 Encounter for screening mammogram for malignant neoplasm of breast (principal); Z80.3 Family history of malignant neoplasm of breast
CPT/HCPCS: 77063; 77067

== ENCOUNTER → 2018-04-12 16:18 | Outpatient (CLI) | payer OTHER, MEDICAID, SELFPAY ==
--- NOTE | 2018-04-12 | DI.MRI.S_ITS ---
PROCEDURE: MR LUMBAR SPINE WO CON INDICATIONS: LOW BACK PAIN TECHNIQUE: Noncontrast sagittal T1 spin echo and T2 fast echo, sagittal STIR, axial T1 and T2 fast spin echo through the lumbar spine. In cases with scoliosis, additional coronal T2 fast spin echo may be performed. COMPARISON: [facility], CR, CHEST 2 VIEW, 03/16/2011, 2:21. [facility], CT, L-SPINE WITHOUT CONTRAST, 08/02/2016, 19:52. [facility], CR, XR LUMBAR SPINE WITH OLBIQUES PLUS FLEXION EXTENSION, 07/17/2017, 16:18. FINDINGS: Image quality: Excellent. Alignment and Curvature: There is near normal bony alignment with slight focal kyphosis centered at T11-12 at the area of moderately severe degenerative disc disease at the low thoracic spine, previously present. Bone Marrow: Marrow is of normal overall signal. No acute vertebral body compression fractures. Spinal Cord: Conus medullaris terminates at the L1 level. Visualized cord demonstrates normal signal and size. Paraspinous Soft Tissues: No paravertebral masses. L1-L2: Normal appearance. L2-L3: Normal appearance. L3-L4: Normal appearance except for mild to moderate facet osteoarthritis without spinal or foraminal stenosis. L4-L5: Moderately severe left-sided and moderate right-sided facet osteoarthritis, with secondary mild bilateral foraminal stenosis but no significant spinal stenosis. L5-S1: Mild degenerative disc disease with disc height reduction and disc desiccation. The facet osteoarthritis present is moderate bilaterally, with greater hyperostosis on the right than the left posteriorly but equivalent anteriorly. There is mild foraminal stenosis slightly greater on the left than the right with potential for mild asymmetric impingement on the course of the L5 nerve roots, left greater than right. IMPRESSION: 1. No disc bulge or herniation producing appreciable spinal stenosis is present. 2. Mild degenerative disc disease is present with disc height reduction and disc desiccation at L5-S1. Facet osteoarthritis at L5-S1 is present bilaterally and there is associated mild bilateral foraminal stenosis with potential for impingement on the course of the L5 nerve roots (left slightly greater than right). 3. Degenerative disc disease at the T11-T12 level has been previously present, and associated with mild focal kyphosis. The degree of degeneration at this level has not appreciably changed but it is not included on the axial imaging. A posterior disc bulge is present to the degree that it slightly distorts the anterior border of the low thoracic cord on the sagittal imaging. Dictated by: Kevin Muniz M.D. on 04/13/2018 at 9:31 Approved by: Kevin Muniz M.D. on 04/13/2018 at 9:47
== END ==
PROVIDERS: PCP Physician Assistant; Visit Provider Physical Medicine & Rehabilitation Pain Medicine
DX: M54.5 Low back pain (principal); M51.34 Other intervertebral disc degeneration, thoracic region; M51.37 Other intervertebral disc degeneration, lumbosacral region; M47.817 Spondylosis without myelopathy or radiculopathy, lumbosacral region
CPT/HCPCS: 72148

== ENCOUNTER → 2018-04-30 13:11 | Outpatient (CLI) | payer OTHER, MEDICAID, SELFPAY ==
[2018-04-30 14:21] LABS: Cholesterol 143 mg/dL (140-199); HDL Cholesterol 51 mg/dL (40-60); LDL Cholesterol Calculated 79 mg/dL (<100); Triglycerides 66 mg/dL (35-150)
== END ==
PROVIDERS: PCP Physician Assistant; Visit Provider Physician Assistant
DX: E78.2 Mixed hyperlipidemia (principal)
CPT/HCPCS: 36415; 80061

== ENCOUNTER → 2020-06-30 13:21 | Outpatient (CLI) | payer OTHER, MEDICAID, SELFPAY ==
[2020-06-30 14:17] LABS: Add Manual Diff / Slide Review NO; Basophils Absolute Auto 0 /uL (0-100); Basophils Percent Auto 0.5 % (0-2); Eosinophils Absolute Auto 100 /uL (0-450); Eosinophils Percent Auto 1.3 % (2-4); Hematocrit 39.4 % (36-46); Hemoglobin 13.5 g/dL (12.0-16.0); Lymphocytes Absolute Auto 2000 /uL (1100-4500); Mean Corpuscular HGB Conc 34.4 % (30-36); Mean Corpuscular Hemoglobin 30.9 PG (26-34); Mean Corpuscular Volume 89.8 fL (80-100); Monocytes Absolute Auto 300 /uL (0-900); Monocytes Percent Auto 4.6 % (3-14); Neutrophils Absolute Auto 3400 /uL (1500-7000); Neutrophils Percent Auto 58.6 % (50-75); Platelet Count 319 X10^3/uL (150-400); Red Blood Cell Count 4.38 X10^6/uL (4.0-5.2); Red Cell Distribution Width 12.8 % (11.6-14.8); White Blood Cell Count 5.8 X10^3/uL (4.5-11.0)
[2020-06-30 14:45] LABS: Alanine Aminotransferase 33 IU/L (<35); Albumin 4.6 g/dL (3.5-5.0); Albumin Globulin Ratio 1.3 (1.0-2.8); Alkaline Phosphatase 52 U/L (38-126); Aspartate Aminotransferase 36 IU/L (14-36); BUN Creatinine Ratio 15.4 (6-22); Bilirubin Total 0.4 mg/dL (0.2-1.3); Blood Urea Nitrogen 12 mg/dL (7-17); Calcium 9.4 mg/dL (8.4-10.2); Carbon Dioxide 27 mmol/L (22-32); Chloride 103 mmol/L (98-107); Cholesterol 155 mg/dL (140-199); Estimated Glomerular Filt Rate > 60.0 mL/min (>60); Globulin 3.5 g/dL (1.7-4.1); Glucose 117 mg/dL (70-100); HDL Cholesterol 42 mg/dL (40-60); HEMOLYSIS < 15 (0-50); LDL Cholesterol Calculated 97 mg/dL (<100); Potassium 3.7 mmol/L (3.4-5.1); Sodium 137 mmol/L (137-145); Total Protein 8.1 g/dL (6.3-8.2); Triglycerides 82 mg/dL (35-150)
== END ==
PROVIDERS: PCP Family Medicine; Referring Provider Family Medicine; Visit Provider Family Medicine
DX: E66.01 Morbid (severe) obesity due to excess calories (principal); E78.2 Mixed hyperlipidemia; I10 Essential (primary) hypertension
CPT/HCPCS: 36415; 80053; 80061; 85025

== ENCOUNTER 2021-06-14 20:26 | Emergency (ER) | payer OTHER, MEDICAID, SELFPAY ==
[2021-06-14 20:31] VITALS: BP 180/97; PULSE 78; RESP 17; TEMP 36.1; O2SAT 98; BMI 42.0
[2021-06-14] MEDS: ONDANSETRON 4 MG ODT SL (20:41)
[2021-06-14 21:01] LABS: COVID19 -Nasal RAPID Negative (Negative)
[2021-06-15 00:23] LABS: Add Manual Diff / Slide Review NO; Basophils Absolute Auto 0 /uL (0-100); Basophils Percent Auto 0.4 % (0-2); Eosinophils Absolute Auto 0 /uL (0-450); Hematocrit 36.8 % (36-46); Hemoglobin 12.7 g/dL (12.0-16.0); Lymphocytes Absolute Auto 600 /uL (1100-4500); Lymphocytes Percent Auto 8.5 % (25-40); Mean Corpuscular HGB Conc 34.4 % (30-36); Mean Corpuscular Hemoglobin 30.7 PG (26-34); Mean Corpuscular Volume 89.3 fL (80-100); Monocytes Absolute Auto 100 /uL (0-900); Monocytes Percent Auto 1.9 % (3-14); Neutrophils Absolute Auto 5900 /uL (1500-7000); Neutrophils Percent Auto 89.2 % (50-75); Platelet Count 288 X10^3/uL (150-400); Red Blood Cell Count 4.12 X10^6/uL (4.0-5.2); Red Cell Distribution Width 13.1 % (11.6-14.8); White Blood Cell Count 6.6 X10^3/uL (4.5-11.0)
[2021-06-15 00:29] LABS: Alanine Aminotransferase 27 IU/L (<35); Albumin Globulin Ratio 1.3 (1.0-2.8); Alkaline Phosphatase 47 U/L (38-126); Aspartate Aminotransferase 38 IU/L (14-36); Bilirubin Total 0.5 mg/dL (0.2-1.3); Blood Urea Nitrogen 11 mg/dL (7-17); Carbon Dioxide 25 mmol/L (22-32); Chloride 108 mmol/L (98-107); Estimated Glomerular Filt Rate > 60.0 mL/min (>60); Globulin 3.8 g/dL (1.7-4.1); Glucose 129 mg/dL (70-100); HEMOLYSIS < 15 (0-50); Lipase 45 U/L (23-300); Potassium 3.7 mmol/L (3.4-5.1); Sodium 141 mmol/L (137-145); Total Protein 8.8 g/dL (6.3-8.2)
--- NOTE | 2021-06-15 00:48 | ED.NAVMDI ---
HPI - Nausea/Vomiting/Diarrhea General Chief complaint: Nausea/Vomiting/Diarrhea Stated complaint: throwing up 12+hrs Time Seen by Provider: 06/14/21 21:45 Source: patient Mode of arrival: Ambulatory History of Present Illness HPI Narrative: 51-year-old female smoker with history of hyperglycemia, PTSD, hypertension, asthma presents with a chief complaint of about 24 hours of nausea and vomiting. She denies any abdominal pain. She denies any new medications or medication change. She denies any dietary change, exposure to bad food, travel or recent antibiotics. She states she felt bit of a tickle in her throat yesterday and started feeling nauseated, today she has had nausea and vomiting and has been able to keep food or drink down or even her medications. Over the course of the day she has developed a gradually worsening generalized headache. She denies blurred vision or trouble speech nor any focal neurologic findings such as numbness, tingling or weakness. She denies any recent trauma or injury Related Data Previous Rx's Medication Instructions Recorded valsartan 80 mg tablet 80 mg PO DAILY #90 tab 07/28/20 montelukast 10 mg tablet 10 mg PO QDAY #90 tab 09/11/20 (Singulair) cyclobenzaprine 10 mg tablet 10 mg PO BID #180 tab 11/03/20 sertraline 100 mg tablet 100 mg PO DAILY #90 tab 02/01/21 albuterol sulfate 90 mcg/actuation See Rx Instructions .ROUTE 04/01/21 aerosol inhaler (ProAir HFA) .COMPLEX #8.5 gram loratadine 10 mg tablet 10 mg PO QDAY #90 tab 04/01/21 fenofibrate 160 mg tablet 160 mg PO DAILY #90 tab 04/30/21 oxycodone-acetaminophen 5 mg-325 1 tab PO BID PRN #60 tab 06/03/21 mg tablet ondansetron 4 mg disintegrating 4 mg PO TID-QID PRN #10 tab 06/15/21 tablet pantoprazole 40 mg tablet,delayed 40 mg PO DAILY #30 tab 06/15/21 release (Protonix) Allergies Allergy/AdvReac Type Severity Reaction Status Date / Time codeine [CODEINE] Allergy Intermediate REDNESS, Verified 07/28/20 16:08 ITHCHING AND HIVES losartan [LOSARTAN] AdvReac Intermediate nausea and Verified 07/28/20 16:08 abdominal cramps Review of Systems Review of Systems Narrative: GENERAL: See HPI HEENT: Denies sinus pain, ear pain, sore throat, difficulty swallowing, dizziness. RESPIRATORY: Denies dyspnea, cough, wheezing, hemoptysis, sputum. CARDIOVASCULAR: Denies chest pain, palpitations, orthopnea, edema, GASTROINTESTINAL: See HP : Denies dysuria, frequency, incontinence, hematuria, urinary retention. MUSCULOSKELETAL: denies weakness, joint pain, or bony pain SKIN: Denies rash, skin lesions, or other NEUROLOGIC: See HPI PSYCHIATRIC: No concerning psychosocial issues. 12 point review of systems is negative except for those stated above Patient History Medical History (Updated 06/15/21 @ 04:38 by Jase Yates DO) Asthma (Unknown) Asthma, moderate persistent, poorly-controlled (12/08/10) Carpal tunnel syndrome (Unknown) Depression (Unknown) Depression Essential hypertension (10/25/11) Hyperglycemia Hypertension (Unknown) Morbid obesity Osteoarthritis of lumbar spine PTSD (post-traumatic stress disorder) Situational anxiety (07/01/15) Skin abnormality Tobacco abuse disorder Well adult exam Surgical History (Updated 09/12/17 @ 05:48 by Conversion Provider) History of carpal tunnel repair History of carpal tunnel repair Status post tubal ligation Family History (Updated 06/08/15 @ 00:00 by Taylor Colindres PA-C) Brother HIV (human immunodeficiency virus infection) Social History Smoking Status: Current some day smoker second hand exposure: No alcohol intake: never substance use type: marijuana Smoking Status: Current some day smoker Substance Use Type: marijuana Exam Narrative Exam Narrative: GENERAL: [51 year old patient appears stated age. Well-developed patient, in mild distress. In a dark room, holding an emesis bag HEAD: Atraumatic. Normocephalic. EYES: Pupils equal round and reactive. Extraocular motions intact. No scleral icterus. No injection or drainage. ENT: Nose without bleeding, purulent drainage. Throat without erythema, tonsillar hypertrophy or exudate. Airway patent. NECK: Trachea midline. Non tender CARDIOVASCULAR: Regular rate and rhythm without murmurs, gallops, or rubs. RESPIRATORY: Clear to auscultation. Breath sounds equal bilaterally. No wheezes, rales, or rhonchi. GASTROINTESTINAL: Abdomen soft, non-tender, nondistended. EXTREMITIES: No edema or joint tenderness. BACK: Nontender without deformity or crepitance. No flank tenderness. NEURO: AOx3. SKIN: No rash or erythema of visible areas NIH Stroke Scale 1a. LOC: Patient is alert and keenly responsive (0) 1b. LOC Questions: Patient answers both LOC questions accurately (0) 1c. LOC Commands: Patient performs both tasks correctly (0) 2. Best Gaze: Normal (0) 3. Visual: No visual loss (0) 4. Facial palsy: Normal symmetrical movements (0) 5. Motor arm: No drift (0) 6. Motor leg: No drift (0) 7. Limb ataxia: Absent (0) 8. Sensory: Normal (0) 9. Best language: No aphasia; normal (0) 10. Dysarthria: Normal (0) 11. Extinction and inattention: No abnormality (0) NIHSS: 0 Initial Vital Signs Initial Vital Signs: Vital Signs Temperature 97.0 F L 06/14/21 20:31 Pulse Rate 78 06/14/21 20:31 Respiratory Rate 17 06/14/21 20:31 Blood Pressure 180/97 H 06/14/21 20:31 Pulse Oximetry 98 06/14/21 20:31 Course Orders Ordered: Discontinued Medications Acetaminophen (Acetaminophen 325 Mg Tablet) 975 mg PO NOW ONE Stop: 06/15/21 03:40 Last Admin: 06/15/21 03:55 Dose: 975 mg Documented by: PREETI Diphenhydramine HCl (Diphenhydramine 50 Mg/Ml Vial) 25 mg IV NOW ONE Stop: 06/15/21 03:40 Last Admin: 06/15/21 03:54 Dose: 25 mg Documented by: PREETI Sodium Chloride (Normal Saline 0.9%) 1,000 mls @ 1,000 mls/hr IV BOLUS ONE Stop: 06/15/21 01:14 Last Infusion: 06/15/21 03:55 Dose: 0 mls/hr Documented by: Admin: 06/15/21 00:55 Dose: 1,000 mls/hr Documented by: PREETI Sodium Chloride (Normal Saline 0.9%) 1,000 mls @ 1,000 mls/hr IV BOLUS ONE Stop: 06/15/21 04:38 Last Infusion: 06/15/21 05:27 Dose: 0 mls/hr Documented by: Admin: 06/15/21 03:54 Dose: 1,000 mls/hr Documented by: PREETI Ketorolac Tromethamine (Ketorolac 30 Mg/Ml Vial) 15 mg IV NOW ONE Stop: 06/15/21 00:17 Last Admin: 06/15/21 00:55 Dose: 15 mg Documented by: PREETI Labetalol HCl (Labetalol 20 Mg/4 Ml Syringe) 10 mg IV NOW ONE Stop: 06/15/21 01:43 Last Admin: 06/15/21 02:13 Dose: 10 mg Documented by: PREETI Lorazepam (Lorazepam 2 Mg/Ml Inj) 1 mg IV NOW ONE Stop: 06/15/21 02:24 Last Admin: 06/15/21 02:28 Dose: 1 mg Documented by: PREETI Metoclopramide HCl (Metoclopramide 10 Mg/2 Ml Inj) 10 mg IV NOW ONE Stop: 06/15/21 00:56 Last Admin: 06/15/21 01:02 Dose: 10 mg Documented by: PREETI Ondansetron HCl (Ondansetron 4 Mg Odt) 4 mg SL NOW ONE Stop: 06/14/21 20:36 Last Admin: 06/14/21 20:41 Dose: 4 mg Documented by: CARRI Ondansetron HCl (Ondansetron 4 Mg/2 Ml Inj) 4 mg IV NOW ONE Stop: 06/15/21 00:17 Last Admin: 06/15/21 00:55 Dose: 4 mg Documented by: PREETI Ondansetron HCl (Ondansetron 4 Mg Odt Prepack) 1 bottle MISC SEEINSTR ONE Stop: 06/15/21 04:41 Last Admin: 06/15/21 05:17 Dose: 1 bottle Documented by: PREETI Reevaluation(s) Reevaluation #1: No change in patient's discomfort or nausea after fluids, Toradol, Zofran and Reglan Time: 01:41 Vital Signs Vital signs: Vital Signs - 8 hr 06/14/21 20:31 06/15/21 01:34 Temperature 97.0 F L Pulse Rate 78 Respiratory Rate 17 Blood Pressure 180/97 H 184/92 H Pulse Oximetry 98 MDM - Nausea/Vomiting/Diarrhea Lab Data Result diagrams: 06/15/21 00:08 02/01/22 00:08 Labs: Lab Results 06/14/21 06/15/21 06/15/21 Range/Units 20:34 00:08 00:08 WBC 6.6 (4.5-11.0) X10^3/uL RBC 4.12 (4.0-5.2) X10^6/uL Hgb 12.7 (12.0-16.0) g/dL Hct 36.8 (36-46) % MCV 89.3 (80-100) fL MCH 30.7 (26-34) PG MCHC 34.4 (30-36) % RDW 13.1 (11.6-14.8) % Plt Count 288 (150-400) X10^3/uL Neut % (Auto) 89.2 H (50-75) % Lymph % (Auto) 8.5 L (25-40) % [place] % (Auto) 1.9 L (3-14) % Eos % (Auto) 0.0 L (2-4) % Baso % (Auto) 0.4 (0-2) % Neut # (Auto) 5900 (6488-0141) /uL Lymph # (Auto) 600 L (6619-0284) /uL [place] # (Auto) 100 (0-900) /uL Eos # (Auto) 0 (0-450) /uL Baso # (Auto) 0 (0-100) /uL Sodium 141 (137-145) mmol/L Potassium 3.7 (3.4-5.1) mmol/L Chloride 108 H (98-107) mmol/L Carbon Dioxide 25 (22-32) mmol/L BUN 11 (7-17) mg/dL Creatinine 0.61 (0.52-1.04) mg/dL Estimated GFR > 60.0 (>60) mL/min BUN/Creatinine Ratio 18.0 (6-22) Glucose 129 H (70-100) mg/dL Calcium 10.0 (8.4-10.2) mg/dL Total Bilirubin 0.5 (0.2-1.3) mg/dL AST 38 H (14-36) IU/L ALT 27 (<35) IU/L Alkaline Phosphatase 47 (38-126) U/L Total Protein 8.8 H (6.3-8.2) g/dL Albumin 5.0 (3.5-5.0) g/dL Globulin 3.8 (1.7-4.1) g/dL Albumin/Globulin Ratio 1.3 (1.0-2.8) Lipase 45 (23-300) U/L Urine RBC (0-5/HPF) Urine WBC (0-5/HPF) Ur Squamous Epith Cells (0-5/HPF) Amorphous Sediment Urine Bacteria (None) Ur Culture Indicated? SARS-CoV-2 (PCR) Negative (Negative) 06/15/21 Range/Units 04:55 WBC (4.5-11.0) X10^3/uL RBC (4.0-5.2) X10^6/uL Hgb (12.0-16.0) g/dL Hct (36-46) % MCV (80-100) fL MCH (26-34) PG MCHC (30-36) % RDW (11.6-14.8) % Plt Count (150-400) X10^3/uL Neut % (Auto) (50-75) % Lymph % (Auto) (25-40) % [place] % (Auto) (3-14) % Eos % (Auto) (2-4) % Baso % (Auto) (0-2) % Neut # (Auto) (4563-9412) /uL Lymph # (Auto) (9188-4486) /uL [place] # (Auto) (0-900) /uL Eos # (Auto) (0-450) /uL Baso # (Auto) (0-100) /uL Sodium (137-145) mmol/L Potassium (3.4-5.1) mmol/L Chloride (98-107) mmol/L Carbon Dioxide (22-32) mmol/L BUN (7-17) mg/dL Creatinine (0.52-1.04) mg/dL Estimated GFR (>60) mL/min BUN/Creatinine Ratio (6-22) Glucose (70-100) mg/dL Calcium (8.4-10.2) mg/dL Total Bilirubin (0.2-1.3) mg/dL AST (14-36) IU/L ALT (<35) IU/L Alkaline Phosphatase (38-126) U/L Total Protein (6.3-8.2) g/dL Albumin (3.5-5.0) g/dL Globulin (1.7-4.1) g/dL Albumin/Globulin Ratio (1.0-2.8) Lipase (23-300) U/L Urine RBC None seen (0-5/HPF) Urine WBC None seen (0-5/HPF) Ur Squamous Epith Cells 5-10 /hpf H (0-5/HPF) Amorphous Sediment 4+ Urine Bacteria None seen (None) Ur Culture Indicated? Culture not indicate SARS-CoV-2 (PCR) (Negative) Point of Care Testing Test Results Negative Urine Dip Bedside Urine Glucose Negative Bedside Urine Bilirubin - Negative Bedside Urine Ketone +/- 5 Urine Specific [place] 1.030 Bedside Urine Occult Blood +/- Bedside Urine pH 5.5 Bedside Urine Protein + 30 Bedside Urine Urobilinogen - Negative Bedside Urine Nitrite - Negative Bedside Urine Leukocytes - Negative Esterase Imaging Data CT scan - head: My Impression: Sarah Potts??51??F??1970 ? Allergy/Adv: codeineacosta Close Head CT (Signed) Pati Rodriguez - 06/15/21 Lumbar Spine MRI (Signed) Kevin Muniz - 04/12/18 Mammogram Screening (Signed) Adele Stevens - 02/10/18 Radiology - Historical 04/01/16 Radiology - Historical 03/07/16 Launch?[place] [address] CT Scan Report Signed Patient: Sarah Potts MR#: [id number] : 1970 Acct:[id number] Age/Sex: 51 / F Date of Service: 06/15/21 Loc: ED Accession Number: [id number] ?? Procedure: CT head/brain wo con Ordering Provider: Jase Yates D.O. PROCEDURE:? CT HEAD/BRAIN WO CON ? INDICATIONS:? HTN emergency, headache, vomiting ? TECHNIQUE:? Noncontrast 4.5 mm thick angled axial sections acquired from the foramen magnum to the vertex, with coronal and sagittal reformats.? For radiation dose reduction, the following was used:? automated exposure control, adjustment of mA and/or kV according to patient size.? ? COMPARISON:? None. ? FINDINGS:? Image quality:? Excellent.? ? CSF spaces:? Basal cisterns are patent.? No extra-axial fluid collections.? Ventricles are normal in size and shape.? ? Brain:? No midline shift.? No intracranial masses or hemorrhage.? Ayala-white matter interface is normal.? ? Skull and face:? Calvarium and visualized facial bones are intact, without suspicious lesions.? ? Sinuses:? Visualized sinuses and mastoids are clear.? ? IMPRESSION:? ? 1. No acute intracranial abnormalities. ? No significant discrepancy with the awake overnight counselor radiology preliminary report. ? ? Dictated by: Kalen Rodriguez M.D. on 06/15/2021 at 7:40 ? ? MDM Narrative Medical decision making narrative: Multiple etiologies for patient's symptoms considered including: [Hypertensive emergency versus COVID versus migraine or atypical migraine versus other Patient's symptoms improved over duration of stay with above-stated therapies. COVID is negative though early in the disease testing may be unreliable. Patient encouraged to self isolate and retest. Headache considerations include, but not limited to: Subarachnoid hemorrhage, but unlikely as patient denies sudden onset of pain, not worst of life, or neck pain Meningitis considered, but thought unlikely given lack of Brudzinski's, Kernig's sign, altered mental status or fever Giant cell arteritis considered, but thought unlikely given lack of unilateral findings, pain in sabianist, vision change HTN Emergency considered, but thought unlikely given lack of change with improved blood pressure Other serious diagnoses considered unlikely given lack of red flag findings such as sudden onset, increasing frequency, immunocompromise, systemic signs (fever, chills, stiff neck, or rash), focal neurologic findings, trauma, blood thinners, etc. Findings and discharge diagnosis discussed with patient/family followed by verbalization of understanding Return precautions discussed with patient/family whom verbalize understanding. Discharge Plan Departure Patient Disposition: Home Clinical Impression: Headache, Nausea & vomiting, Hypertension Activity Restrictions/Additional Instructions: *You have been diagnosed with [headache with nausea and vomiting. Your labs, imaging and response to therapies are reassuring. There is no evidence of any diagnosis which would require a specific treatment other than symptomatic treatment. Your COVID test was negative, many your symptoms are consistent with COVID, and is well known that testing early on in the disease process is not as accurate. He would be reasonable for you to isolate yourself for the next few days and get retested if you have ongoing symptoms *What to do: *Please continue to take your regular medications as directed. [x ] New medication prescriptions sent to your pharmacy: [[facility]] [ ] New medication written as a paper prescription [ ] No new medications given *Please follow up with your primary care provider in 2-3 days, call for an appointment. Let them know you were seen in the Emergency Department and that we ask that you be seen in follow up. We will electronically transmit a record of today's note if your PCP is in our system *If you do not have a primary care provider please contact the [facility] Resource line at [phone]. They will ask some questions about your medical history and help get you set up with a doctor in the community. *Return to Emergency Department if you should have any new, worsening or concerning symptoms, such as [fever greater than 101 F, shaking chills, worsening pain, persistent vomiting or other bothersome symptoms] Prescriptions: New pantoprazole [Protonix] 40 mg tablet,delayed release (DR/EC) 40 mg PO DAILY Qty: 30 0RF ondansetron 4 mg tablet,disintegrating 4 mg PO TID-QID PRN (Reason: nausea and vomiting) Qty: 10 0RF No Action montelukast [Singulair] 10 mg tablet 10 mg PO QDAY Qty: 90 3RF cyclobenzaprine 10 mg tablet 10 mg PO BID Qty: 180 1RF loratadine 10 mg tablet 10 mg PO QDAY Qty: 90 3RF albuterol sulfate [ProAir HFA] 90 mcg/actuation HFA aerosol inhaler See Rx Instructions .ROUTE .COMPLEX Qty: 8.5 7RF Dose Instruction: inhale 2 puffs by mouth every 4 to 6 hours if needed for shortness of breath Rx Instructions: inhale 2 puffs by mouth every 4 to 6 hours if needed for shortness of breath fenofibrate 160 mg tablet 160 mg PO DAILY Qty: 90 3RF oxycodone-acetaminophen 5-325 mg tablet 1 tab PO BID PRN (Reason: pain) Qty: 60 0RF valsartan 80 mg tablet 80 mg PO DAILY Qty: 90 3RF sertraline 100 mg tablet 100 mg PO DAILY Qty: 90 3RF Referrals: Tony Freeman, [Primary Care Provider] -
[2021-06-15] MEDS: SODIUM CHLORIDE 0.9% 1,000 ML 1000 ML IV ×2 (00:55→03:54)
[2021-06-15] MEDS: KETOROLAC 30 MG/ML VIAL 15 MG IV (00:55)
[2021-06-15] MEDS: ONDANSETRON 4 MG/2 ML INJ IV (00:55)
[2021-06-15] MEDS: METOCLOPRAMIDE 10 MG/2 ML INJ IV (01:02)
[2021-06-15 01:34] VITALS: BP 184/92
--- NOTE | 2021-06-15 01:42 | DI.CT.S_ITS ---
PROCEDURE: CT HEAD/BRAIN WO CON INDICATIONS: HTN emergency, headache, vomiting TECHNIQUE: Noncontrast 4.5 mm thick angled axial sections acquired from the foramen magnum to the vertex, with coronal and sagittal reformats. For radiation dose reduction, the following was used: automated exposure control, adjustment of mA and/or kV according to patient size. COMPARISON: None. FINDINGS: Image quality: Excellent. CSF spaces: Basal cisterns are patent. No extra-axial fluid collections. Ventricles are normal in size and shape. Brain: No midline shift. No intracranial masses or hemorrhage. Ayala-white matter interface is normal. Skull and face: Calvarium and visualized facial bones are intact, without suspicious lesions. Sinuses: Visualized sinuses and mastoids are clear. IMPRESSION: 1. No acute intracranial abnormalities. No significant discrepancy with the night warehouse manager radiology preliminary report. Dictated by: Kalen Rodriguez M.D. on 06/15/2021 at 7:40 Approved by: Kalen Rodriguez M.D. on 06/15/2021 at 7:40
[2021-06-15 02:13] VITALS: BP 160/77; PULSE 69
[2021-06-15] MEDS: LABETALOL 20 MG/4 ML SYRINGE 10 MG IV (02:13)
[2021-06-15] MEDS: LORazepam 2 MG/ML INJ 1 MG IV (02:28)
[2021-06-15 02:34] VITALS: BP 171/99; PULSE 58
[2021-06-15 03:30] VITALS: BP 177/83; PULSE 70; O2SAT 96
[2021-06-15] MEDS: diphenhydrAMINE 50 MG/ML VIAL 25 MG IV (03:54)
[2021-06-15] MEDS: ACETAMINOPHEN 325 MG TABLET 975 MG PO (03:55)
--- NOTE | 2021-06-15 04:15 | PC.NURSE ---
pt tolerated ice chips
[2021-06-15] MEDS: ONDANSETRON 4 MG ODT PREPACK 1 BOTTLE MISC (05:17)
[2021-06-15 05:32] LABS: Bacteria Urine None Seen; RBC Urine None Seen (0-5/HPF); Squamous Epithelial Cell Urine 5-10 /HPF (0-5/HPF); WBC Urine None Seen (0-5/HPF)
[2021-06-15 05:33] LABS: Amorphous Sediment Urine 4+
== END 2021-06-15 05:21 | disposition home or self-care (01) ==
PROVIDERS: Emergency Provider Emergency Medicine; PCP Family Medicine
DX: R51.9 Headache, unspecified (principal); R11.2 Nausea with vomiting, unspecified; I10 Essential (primary) hypertension; F17.200 Nicotine dependence, unspecified, uncomplicated; Z20.822 Contact with and (suspected) exposure to COVID-19
CPT/HCPCS: 36415; 70450; 80053; 81003; 81015; 81025; 83690; 85025; 87086; 87635; 96361; 96374; 96375; 99284; C9803; J1200; J1885; J2060; J2405; J2765

== ENCOUNTER → 2023-01-09 16:14 | Outpatient (CLI) | payer OTHER, MEDICAID, SELFPAY ==
--- NOTE | 2023-01-09 16:19 | DI.RAD.S_ITS ---
PROCEDURE: XR LUMBAR SPINE 2-3V INDICATIONS: Low back pain TECHNIQUE: 3 views of the lumbar spine were acquired. COMPARISON: [facility], , L-SPINE 2-3 VIEWS, 02/27/2015, 20:33. FINDINGS: Bones: 5 [id number] vertebrae are present. There is normal bony alignment. Minimal to mild disc and foraminal narrowing are present L5-S1. No vertebral body compression fractures. No suspicious bony lesions. Soft tissues: Overlying bowel gas pattern is normal. No suspicious soft tissue calcifications. IMPRESSION: Degenerative changes most notable at L5-S1. Dictated by: Daniella Salinas M.D. on 01/09/2023 at 17:13 Approved by: Daniella Salinas M.D. on 01/09/2023 at 17:13
== END ==
PROVIDERS: PCP Family Medicine; Referring Provider Family Medicine; Visit Provider Family Medicine
DX: M54.50 Low back pain, unspecified (principal); G89.29 Other chronic pain; M47.817 Spondylosis without myelopathy or radiculopathy, lumbosacral region
CPT/HCPCS: 72100